=== PATIENT | male | born 1985 | race Caucasian/White ===

== ENCOUNTER → 2017-02-11 | Outpatient (CLI) | payer BC ==
--- NOTE | 2017-02-12 08:50 | PCVCIMAG ---
APPROVED REPORT Study performed: 02/11/2017 09:17:26 EXAM: Comprehensive 2D, Doppler, and color-flow Echocardiogram Patient Location: [facility] Status: routine BSA: 2.00 HR: 68 bpmBP: 112/68 mmHg Rhythm: NSR Other Information Study Quality: Excellent Indications Aortic Valve Disease Echo Enhancing Agent Indication: Rule out Shunt Agent(s) / Amount(s) Used: Agitated Saline 10 cc Comments: Contrast study was performed with 2 IV injections of 10ccs of agitated normal saline. Negative contrast study for shunt flow. 2D Dimensions Ascending Ao: 3.60 (22-36mm) Procedure After obtaining informed consent, patient underwent transesophageal echo in the [facility] [employer]. Type of Sedation : Conscious Sedation Sedation was administered by Jaylene Mott RN. Versed (4mg) Fentanyl (100mcg) Transesophageal probe was inserted and advanced into esophagus without difficulty by Marcello Tariq MD. Echo enhancement indication: R/O Septal defect. Echo enhancement agent administered: Agitated Saline The CHAD was performed without complications. Throughout the procedure, the blood pressure, pulse oximetry, cardiac rhythm, and rate were monitored. The patient tolerated the procedure without adverse effects. Recovery from conscious sedation was uneventful and vital signs were stable. Left Ventricle The left ventricle is normal size. There is normal LV segmental wall motion. There is normal left ventricular wall thickness. Left ventricular systolic function is normal. The left ventricular ejection fraction is within the normal range. LVEF is 60-65%. Right Ventricle The right ventricle is normal size. The right ventricular systolic function is normal. Atria The left atrium size is normal. No shunting by contrast bubble injection The right atrium size is normal. Aortic Valve Aortic valve is bicuspid. Mild to moderate aortic regurgitation. There is no aortic valvular stenosis. Mitral Valve The mitral valve is normal in structure. There is no mitral valve regurgitation noted. No evidence of mitral valve stenosis. Tricuspid Valve The tricuspid valve is normal in structure. There is no tricuspid valve regurgitation noted. Pulmonic Valve The pulmonary valve is normal in structure. There is no pulmonic valvular regurgitation. Great Vessels The aortic root is normal in size. The ascending aorta is normal in size. Pericardium There is no pericardial effusion. <Conclusion> Left ventricular systolic function is normal. There is normal LV segmental wall motion. LVEF is 60-65%. No shunting by contrast bubble injection Aortic valve is bicuspid. Mild to moderate aortic regurgitation, no stenosis. The mitral valve is normal in structure. No mitral valve regurgitation noted. The aortic root is normal in size. The ascending aorta is normal in size. There is no pericardial effusion.
== END | disposition home or self-care (01) ==
LOC: PCVCINTER 08:38
PROVIDERS: ATTEND Internal Medicine
DX: I35.1 Nonrheumatic aortic (valve) insufficiency (principal)
CPT/HCPCS: 93312; 93325; 99152; 99153

== ENCOUNTER → 2018-07-23 | Outpatient (CLI) | payer BC ==
--- NOTE | 2018-07-23 09:08 | PCVCIMAG ---
APPROVED REPORT Study performed: 07/23/2018 08:15:32 EXAM: Comprehensive 2D, Doppler, and color-flow Echocardiogram Patient Location: Echo lab Status: routine BSA: 2.03 HR: 72 bpmBP: 124/80 mmHg Rhythm: NSR Other Information Study Quality: Adequate Indications Palpitations bicuspid aortic valve, aortic insufficiency 2D Dimensions IVSd: 10.66 (7-11mm) LVDd: 47.56 mm PWd: 10.17 (7-11mm)Ascending Ao: 32.96 (22-36mm) LVDs: 35.14 (25-40mm) Left Atrium: 38.11 (27-40mm) Aortic Root: 31.72 mm LV Single Plane 4CH: 56.74 % LV Single Plane 2CH: 68.90 % Biplane EF: 62.1 % Volumes Left Atrial Volume (Systole) Single Plane 4CH: 46.02 mLSingle Plane 2CH: 63.74 mL LA ESV Index: 27.00 mL/m2 Aortic Valve AoV Peak Leonidas.: 1.83 m/s AO Peak Gr.: 13.42 mmHgLVOT Max P.42 mmHg LVOT Max V: 1.16 m/s AI Vmax: 4.55 m/s AI [place]: 2.72 m/s2 AI PHT: 484.64 ms Mitral Valve E/A Ratio: 1.6 MV Decel. Time: 190.39 ms MV E Max Leonidas.: 0.60 m/s MV A Leonidas.: 0.38 m/s IVRT: 121.11 ms Pulmonary Valve PV Peak Leonidas.: 1.07 m/sPV Peak Gr.: 4.56 mmHg Pulmonary Vein P Vein S: 0.24 m/sP Vein A: 0.35 m/s P Vein D: 0.46 m/sP Vein A Dur.: 117.6 msec P Vein S/D Ratio: 0.52 Tricuspid Valve TR Peak Leonidas.: 2.56 m/s TR Peak Gr.: 26.22 mmHg TV Vmax: 0.52 m/s Left Ventricle The left ventricle is normal size. There is normal LV segmental wall motion. There is normal left ventricular wall thickness. Left ventricular systolic function is normal. The left ventricular ejection fraction is within the normal range. LVEF is 60-65%. The left ventricular diastolic function is normal. Right Ventricle The right ventricle is normal size. The right ventricular systolic function is normal. Atria The left atrium size is normal. The right atrium size is normal. Aortic Valve Aortic valve is bicuspid. Mild to moderate aortic regurgitation. There is no aortic valvular stenosis. Mitral Valve The mitral valve is normal in structure. Mild mitral regurgitation. No evidence of mitral valve stenosis. Tricuspid Valve The tricuspid valve is normal in structure. Mild tricuspid regurgitation with PAP of 33 mmHg. Pulmonic Valve The pulmonary valve is normal in structure. There is no pulmonic valvular regurgitation. Great Vessels The aortic root is normal in size. IVC is normal in size and collapses >50% with inspiration. Pericardium There is no pericardial effusion. There is no pleural effusion. <Conclusion> Left ventricular systolic function is normal. There is normal LV segmental wall motion. LVEF is 60-65%. Normal diastolic function Aortic valve is bicuspid (Confirmed by prior CHAD). Mild to moderate aortic regurgitation, no stenosis. The mitral valve is normal in structure. Mild mitral regurgitation. Mild tricuspid regurgitation with pulmonary artery pressure of 33 mmHg. There is no pericardial effusion.
== END | disposition home or self-care (01) ==
LOC: PCVCIMAG 08:26
PROVIDERS: ATTEND Internal Medicine Cardiovascular Disease
DX: I08.3 Combined rheumatic disorders of mitral, aortic and tricuspid valves (principal); R00.2 Palpitations
CPT/HCPCS: 93306